=== PATIENT | male | born 2005 | race Two or more races ===

== ENCOUNTER 2023-03-23 12:29 | Emergency (ER) | payer SELFPAY ==
[~2023-03-23] VITALS: Ht 182.9 cm; Wt 69.7 kg
[2023-03-23 14:24] VITALS: BP 134/81; PULSE 70; RESP 18; TEMP 98.9; O2SAT 100
[2023-03-23] MEDS ORDERED: DICYCLOMINE HCL 10 MG CAP PO ONE (15:00)
[2023-03-23 15:40] LABS: Rapid Influenza A Negative (Negative); Rapid Influenza B Negative (Negative)
[2023-03-23 15:41] LABS: COVID19 ANTIGEN SOFIA FIA NEGATIVE (NEGATIVE)
[2023-03-23] MEDS ORDERED: ACET500T58 PO (17:22)
[2023-03-23] MEDS ORDERED: ZOFR4T PO (17:22)
[2023-03-23] MEDS ORDERED: DICY10CA PO (17:22)
== END 2023-03-23 17:32 | disposition home or self-care (01) ==
LOC: ER 12:29
DX: A08.4 Viral intestinal infection, unspecified (principal)
CPT/HCPCS: 36415; 87426; 87804; 99283; J0500